=== PATIENT | female | born 1985 | race Two or more races ===

== ENCOUNTER 2023-12-25 18:07 | Emergency (ER) | payer SELFPAY ==
[~2023-12-25] VITALS: Ht 160 cm; Wt 79.5 kg
[2023-12-25] MEDS: ACETAMINOPHEN 325 MG TAB PO ONE (20:54)
[2023-12-25] MEDS: KETOROLAC TROMETH 30 MG/ML 1ML VIAL IM ONE (20:54)
[2023-12-25] MEDS: diazePAM 5 MG TAB PO ONE (20:57)
[2023-12-25 20:58] VITALS: BP 137/81; PULSE 70; RESP 17; TEMP 98.3; O2SAT 99
== END 2023-12-25 21:11 | disposition home or self-care (01) ==
LOC: ER 18:07
DX: M54.12 Radiculopathy, cervical region (principal)
CPT/HCPCS: 96372; 99283; J1885

== ENCOUNTER 2024-10-06 10:12 | Inpatient (IN) | payer OTHER ==
[~2024-10-06] VITALS: Ht 154.9 cm; Wt 82.7 kg
[2024-10-06] MEDS: SODIUM CHLORIDE 0.9% 500 ML IVB ONE (10:30)
--- NOTE | 2024-10-06 10:33 | ED.PDOC ---
History of Present Illness HPI Comments This is a 38-year-old female without any significant past medical history presented to the ER with a chief complaint of severe right subcostal pain with nausea and vomiting since yesterday prior to this visit. The patient stated that subcostal pain colicky in nature, 12/10 radiate to the epigastric region and also in the back without any aggravating and relieving factors and associated with nausea and vomiting. She went to urgent care today and they referred the patient to the ER for further evaluation and management of right subcostal pain. Chief Complaint: Flank Pain Time Seen by MD: 10:14 Allergies: Coded Allergies: NO KNOWN ALLERGIES (Unverified , 12/25/23) Information Source: Patient Mode of Arrival: Ambulatory Severity: Moderate Timing: Hours Duration: Since onset Prehospital treatment: None Past Medical History PAST MEDICAL HISTORY: Denies Surgical History: Denies all surgeries ENVIRONMENTAL HEALTH TECHNOLOGIST History: Denies all ENVIRONMENTAL HEALTH TECHNOLOGIST Hx Family History Family History: Reviewed,noncontributory to illness Social History Smoker: Non-Smoker Alcohol: Denies ETOH Use Drugs: Denies Drug Use Lives In: Home Constitutional: reports: chills; denies: diaphoresis, fatigue, fever, malaise, sweats, weakness, others EENTM: denies: blurred vision, double vision, ear bleeding, ear discharge, ear drainage, ear pain, ear ringing, eye pain, eye redness, hearing loss, mouth pain, mouth swelling, nasal discharge, nose bleeding, nose congestion, nose pain, photophobia, tearing, throat pain, throat swelling, voice changes, others Respiratory: denies: cough, hemoptysis, orthopnea, SOB at rest, shortness of breath, SOB with excertion, stridor, wheezing, others Cardiovascular: denies: chest pain, dizzy spells, diaphoresis, Dyspnea on exertion, edema, irregular heart beat, left arm pain, lightheadedness, palpitations, PND, syncope, others Gastrointestinal: reports: abdominal pain, nausea, vomiting; denies: abdomen distended, blood streaked bowels, constipated, diarrhea, dysphagia, difficulty swallowing, hematemesis, melena, poor appetite, poor fluid intake, rectal bleeding, rectal pain, others Genitourinary: denies: abnormal vagina bleeding, burning, dyspareunia, dysuria, flank pain, frequency, hematuria, incontinence, pain, , vagina disc harge, urgency, others Neurological: denies: dizziness, fainting, headache, left sided numbness, left sided weakness, numbness, paresthesia, pre-existing deficit, right sided numbness, right sided weakness, seizure, speech problems, tingling, tremors, weakness, others Musculoskeletal: denies: back pain, gout, joint pain, joint swelling, muscle pain, muscle stiffness, neck pain, others Integumetry: denies: bruises, change in color, change in hair/nails, dryness, laceration, lesions, lumps, rash, wounds, others Endocrine: denies: excessive hunger, excessive sweating, excessive thirst, excessive urination, flushing, intolerance to cold, intolerance to heat, unexplained weight gain, unexplained weight loss, others Psychiatric: denies: anxiety, bipolar disorder, depression, hopeless, panic disorder, schizophrenia, sleepless, suicidal, others Physical Exam General Appearance: Mild Distress HEENT: Normal ENT Inspection, Pharynx Normal, TMs Normal Neck: Full Range of Motion, Non-Tender, Normal, Normal Inspection Respiratory: Chest Non-Tender, Lungs Clear, No Accessory Muscle Use, No Respiratory Distress, Normal Breath Sounds Cardiovascular: No Edema, No JVD, No Murmur, No Gallop, Normal Peripheral Pulses, Regular Rate/Rhythm Breast Exam: Deferred Gastrointestinal: No Organomegaly, No Pulsatile Mass, Normal Bowel Sounds, RUQ, Tenderness Genitalia: Deferred Pelvic: Deferred Rectal: Deferred Extremities: No calf tenderness, Normal capillary refill, Normal inspection, Normal range of motion, Non-tender, No pedal edema Neurologic: NOT DONE Cerebellar Function: NOT DONE Reflexes: NOT DONE Skin: NOT DONE Peripheral Pulses: 2+ carotid (R), 2+ carotid (L), 2+ femoral (R), 2+ femoral (L), 2+ dorsalis pedis (R), 2+ dorsalis pedis (L), 2+ Radial (R), 2+ Radial (L), 2+ Brachial (R), 2+ Brachial (L) Lymphatic: NOT DONE Was a procedure done? Was a procedure done?: No Differential Dx Considerations may include: Acute cholecystitis, cholelithiasis, biliary colic, PUD, pancreatitis X-Ray, Labs, Meds, VS Vital Signs Date Time Temp Pulse Resp B/P (MAP) Pulse Ox O2 Delivery O2 Flow Rate FiO2 10/06/24 10:16 98.0 70 15 152/97 99 98.0 Lab Test 10/06/24 11:48 10/06/24 10:30 Range/Units White Blood Count 6.6 4.4-10.8 10^3/uL Red Blood Count 4.72 4.0-5.20 10^6/uL Hemoglobin 14.1 12.2-16.2 g/dL Hematocrit 40.1 36.0-46.0 % Mean Corpuscular Volume 85.0 80.0-100.0 fL Mean Corpuscular Hemoglobin 30.0 28.0-32.0 pg Mean Corpuscular Hemoglobin Concent 35.3 32.0-36.0 g/dL Red Cell Distribution Width 13.8 11.8-14.3 % Platelet Count 225 140-450 10^3/uL Mean Platelet Volume 9.3 6.9-10.8 fL Neutrophils (%) (Auto) 82.2 H 37.0-80.0 % Lymphocytes (%) (Auto) 13.0 10.0-50.0 % Monocytes (%) (Auto) 4.2 0.0-12.0 % Eosinophils (%) (Auto) 0.1 0.0-7.0 % Basophils (%) (Auto) 0.5 0.0-2.0 % Neutrophils # (Auto) 5.4 1.6-8.6 10 ^3/uL Lymphocytes # (Auto) 0.9 0.4-5.4 10 ^3/uL Monocytes # (Auto) 0.3 0-1.3 10 ^3/uL Eosinophils # (Auto) 0 0-0.8 10 ^3/uL Basophils # (Auto) 0 0-0.2 10 ^3/uL Nucleated Red Blood Cells 0.0 % Sodium Level 139 136-145 mmol/L Potassium Level 4.0 3.5-5.1 mmol/L Chloride Level 105 98-107 mmol/L Carbon Dioxide Level 26 20-31 mmol/L Anion Gap 8 5-15 Blood Urea Nitrogen 7 L 9-23 mg/dL Creatinine 0.61 0.550-1.02 mg/dL Glomerular Filtration Rate Calc 119 >90 mL/min BUN/Creatinine Ratio 11.5 10.0-20.0 Serum Glucose 97 74-106 mg/dL Calcium Level 9.1 8.7-10.4 mg/dL Magnesium Level 2.0 1.6-2.6 mg/dL Total Bilirubin 1.8 H 0.2-1.0 mg/dL Aspartate Amino Transferase (AST) 338 H 13-40 U/L Alanine Aminotransferase (ALT) 190 H 7-40 U/L Alkaline Phosphatase 71 46-116 U/L Total Protein 7.5 5.7-8.2 g/dL Albumin 4.6 3.2-4.8 g/dL Lipase 48 12-53 U/L Urine Color Yellow Yellow Urine Clarity Turbid H Clear Urine pH 7.5 5.0-9.0 Urine Specific [place] 1.027 1.001-1.035 Urine Protein Trace H Negative Urine Ketones Negative Negative Urine Blood Negative Negative /uL Urine Nitrite Negative Negative Urine Bilirubin Negative Negative Urine Urobilinogen Normal Negative mg/dL Urine Leukocyte Esterase Trace Negative /uL Urine RBC 6 0 - 4 /hpf Urine Microscopic WBC 11 H 0-5 /HPF Urine Squamous Epithelial Cells Mod <5 /hpf Urine Bacteria Few H None Seen /hpf Urine Mucus Few None Seen Urine Glucose Normal Normal mg/dL Urine Test Negative Negative X-Ray, Labs, Meds, VS Comment INDICATION: Severe right upper quadrant pain TECHNIQUE: Multiple real-time sonographic images were obtained of the right upper quadrant. COMPARISON: None FINDINGS: The liver demonstrates increased echotexture without focal mass lesions. The liver measures 18 cm. There is no intrahepatic or extrahepatic ductal dilatation. The common duct measures 6 mm. Gallstones and gallbladder sludge. The gallbladder wall measures 3 mm and is within normal limits. Sonographic luz's sign is reportedly positive. The right kidney measures 9.5 cm. The right kidney is normal in contour, size, and shape. The echogenicity is normal. There is no hydronephrosis. The pancreas is not well visualized due to overlying bowel gas. IMPRESSION: Cholelithiasis and gallbladder sludge. If clinical concern for acute cholecystitis, consider further evaluation with nuclear medicine HIDA scan. Hepatic steatosis and hepatomegaly. Images Reviewed?: Images reviewed and evaluated by me Time of 1ST Reevaluation: 13:20 Reevaluation 1ST: Improved Patient Education/Counseling: Diagnosis, Treatment Family Education/Counseling: No Family Present Comments This is a 38-year-old female with no significant past medical history presented to the ER with severe right subcostal pain nausea and vomiting for 1 day Physical examination demonstrated right subcostal dizziness with positive Luz sign Ultrasound of right upper quadrant showed cholelithiasis with sonographic positive Luz sign CBC revealed normal WBC count with left shift, H&H is stable CMP demonstrated hyperbilirubinemia with elevated AST and ALT The patient was initially treated with IV fluid, IV morphine 4 mg once, IV ondansetron 4 mg once Patient mentioned slightly improved right subcostal pain Pending nuclear medicine HIDA scan to exclude acute cholecystitis Surgical consultation may needed for further management of cholelithiasis with possible acute cholecystitis The patient needs inpatient treatment for further management of cholelithiasis possible acute cholecystitis. SEPSIS Sepsis Screen Date sepsis recognized/suspect: Oct 06, 2024 Time Sepsis recognized/suspect: 1018 Recent Procedure: No On Antibiotic Therapy: No Respiratory Rate >20: No Heart Rate >90: No Temp<36 C (96.8 F) or >38.3 C: No SBP <90 or MAP <65 mmHG: No New Acute Mental Status Change: No Is the patient on CPAP, BIPAP,: No Physician Orders Abdomen Limited (10/06/24 10:30) Nm Hida Scan (10/06/24 11:39) Chest Portable (10/06/24 11:39) Vital Signs Date Time Temp Pulse Resp B/P (MAP) Pulse Ox O2 Delivery O2 Flow Rate FiO2 10/06/24 10:16 98.0 70 15 152/97 99 98.0 Laboratory Tests Test 10/06/24 11:48 White Blood Count 6.6 10^3/uL (4.4-10.8) Departure 1 Departure Time of Disposition: 13:22 Impression: Primary Impression: Symptomatic cholelithiasis Additional Impression: Transaminitis Disposition: 30 STILL A PATIENT Admit to: Med Surg Condition: Guarded Critical Care Note Critical Care Time?: No Stability Stability form required: No LIZETTE HIDALGO RESIDENT Oct 06, 2024 10:33
[2024-10-06 11:06] LABS: Urine Protein, UAD TRACE (Negative)
--- NOTE | 2024-10-06 11:09 | DVH ---
INDICATION: Severe right upper quadrant pain TECHNIQUE: Multiple real-time sonographic images were obtained of the right upper quadrant. COMPARISON: None FINDINGS: The liver demonstrates increased echotexture without focal mass lesions. The liver measures 18 cm. There is no intrahepatic or extrahepatic ductal dilatation. The common duct measures 6 mm. Gallstones and gallbladder sludge. The gallbladder wall measures 3 mm and is within normal limits. S onographic perera's sign is reportedly positive. The right kidney measures 9.5 cm. The right kidney is normal in contour, size, and shape. The echoge nicity is normal. There is no hydronephrosis. The pancreas is not well visualized due to overlying bowel gas. IMPRESSION: Cholelithiasis and gallbladder sludge. If clinical concern for acute cholecystitis, consider further evaluation with nuclear medicine HIDA scan. Hepatic steatosis and hepatomegaly.
[2024-10-06 12:09] LABS: Hematocrit 40.1 % (36.0-46.0); Hemoglobin 14.1 g/dL (12.2-16.2); Mean Corpuscular Hemoglobin 30.0 pg (28.0-32.0); Mean Corpuscular Volume 85.0 fL (80.0-100.0); Nucleated Red Blood Cells % 0.0 %
--- NOTE | 2024-10-06 12:09 | DVH ---
INDICATION: Shortness of breath TECHNIQUE: Frontal view of the chest. COMPARISON: None FINDINGS: . The heart and mediastinal contours are grossly unremarkable. There is no evidence of pleural disea se. The lungs are clear. The bony structures of the chest are intact without fracture. IMPRESSION: 1. No evidence of acute disease.
[2024-10-06 12:25] LABS: Albumin 4.6 g/dL (3.2-4.8); Alkaline Phosphatase 71 U/L (46-116); Anion Gap 8 (5-15); BUN/Creatinine Ratio 11.5 (10.0-20.0); Calcium 9.1 mg/dL (8.7-10.4); Carbon Dioxide 26 mmol/L (20-31); Chloride 105 mmol/L (98-107); Glucose 97 mg/dL (74-106); Lipase 48 U/L (12-53); Magnesium 2.0 mg/dL (1.6-2.6); Potassium 4.0 mmol/L (3.5-5.1); Sodium 139 mmol/L (136-145); Total Protein 7.5 g/dL (5.7-8.2)
[2024-10-06 12:27] LABS: Alanine Aminotransferase 190 U/L (7-40); Bilirubin, Total 1.8 mg/dL (0.2-1.0); Blood Urea Nitrogen 7 mg/dL (9-23)
[2024-10-06] MEDS: ONDANSETRON HCL 4 MG/2 ML VIAL IV ONE (13:57)
[2024-10-06] MEDS: MORPHINE SULFATE 4 MG/ML SYR/VIAL IV ONE (14:01)
[2024-10-06 14:19] LABS: INR 1.04 (0.9-1.15); Partial Thromboplastin Time 25.3 SEC (24.5-34.5); Prothrombin Time 11.0 sec (9.3-11.8)
--- NOTE | 2024-10-06 16:49 | DVH ---
Procedure: NM NM HIDA SCAN Exam Date: 10/06/2024 02:30 PM Clinical History: Symptomatic cholelithiasis Comparison Study: None Nuclear Medicine Hepatobiliary Scan. Technique: Following the intravenous administration of 5.5 mCi of technetium 99m labeled Choletec multiple plana r abdominal planar images were obtained in anterior projection in 1 minute intervals for 60 minutes . Right lateral images were obtained at 61 minutes after injection. Findings: No small bowel visualized after 90 minutes Impression: 1. Gallbladder and common bile duct visualized. No small bowel visualized after 90 minutes.
[2024-10-06] MEDS: ACETAMINOPHEN 325 MG TAB PO ONE (17:29)
[2024-10-06] MEDS ORDERED: ONDANSETRON HCL 4 MG/2 ML VIAL IV PRN (19:15)
[2024-10-06] MEDS ORDERED: HYDROcodone-ACET 5/325MG TAB PO PRN (19:15)
[2024-10-06] MEDS ORDERED: SODIUM CHLORIDE 0.9% 1,000 ML IV ONE (19:15)
[2024-10-06] MEDS ORDERED: ACETAMINOPHEN 500 MG TAB or CAP PO PRN ×2 (19:15→19:30)
[2024-10-06] MEDS ORDERED: cefTRIAXone 1GM/50ML D5W 50 ML IV ONE (19:15)
[2024-10-06] MEDS ORDERED: MORPHINE SULFATE INJ 2 MG/ml SYRG IV PRN (19:15)
--- NOTE | 2024-10-06 19:18 | DVHHPRES ---
History of Present Illness Resident Creating Document: HUI GUSMAN RESIDENT History of Present Illness Ms Montes is a 38-year-old female who denied any past medical history, presents to the ER with a chief complaint of fever right-sided abdominal pain starting yesterday, associated with nausea and vomiting. Patient reports waking up with right sided abdominal pain which radiates to the epigastrium, colicky in nature associated with nausea and vomiting, she could not keep anything down. Denies fever but reports chills. Denies diarrhea or constipation at this time. Patient denies any other symptoms including chest pain, shortness of breath. Past medical history: Denies Past surgical history: Denies Lives with family, smoking/drinking/drug use Patient seen and examined in ER. Right upper quadrant tenderness, hypoactive bowel sounds. Smoke: No ALCOHOL: none Drugs: None Lives: with Family Review of Systems Constitutional: Yes: Chills Gastrointestinal: Nausea, Vomiting, Abdominal Pain Allergies: Coded Allergies: NO KNOWN ALLERGIES (Unverified , 12/25/23) Exam Vital Signs Vital Signs Date Time Temp Pulse Resp B/P (MAP) Pulse Ox O2 Delivery O2 Flow Rate FiO2 10/06/24 17:30 63 18 120/74 (89) 98 10/06/24 17:30 Room Air 10/06/24 10:16 98.0 98.0 Exam General Appearance: Obese female patient sitting in a chair, mild acute distress HEENT: Atraumatic, PERRLA, EOMI, Mucous membrane moist/pink Respiratory: Clear to auscultation, Normal air movement Cardiovascular: Regular rate, Normal S1, Normal S2, No murmurs, no chest wall tenderness Abdominal: Right upper quadrant tenderness, soft, hypoactive bowel sounds No hepatospenomegaly, No masses Extremities: No clubbing, No cyanosis, No edema, Normal pulses, No tenderness/swelling Skin: No rashes, No breakdown, No significant lesion Neuro: Normal gait, Normal speech, Strength at 5/5 X4 ext, Normal tone, Sensation intact, Cranial nerves 3-12 NL, Reflexes 2+ Psych/Mental Status: Mental status NL, Mood NL Labs/Xrays Labs Test 10/06/24 11:48 10/06/24 10:30 Range/Units White Blood Count 6.6 4.4-10.8 10^3/uL Red Blood Count 4.72 4.0-5.20 10^6/uL Hemoglobin 14.1 12.2-16.2 g/dL Hematocrit 40.1 36.0-46.0 % Mean Corpuscular Volume 85.0 80.0-100.0 fL Mean Corpuscular Hemoglobin 30.0 28.0-32.0 pg Mean Corpuscular Hemoglobin Concent 35.3 32.0-36.0 g/dL Red Cell Distribution Width 13.8 11.8-14.3 % Platelet Count 225 140-450 10^3/uL Mean Platelet Volume 9.3 6.9-10.8 fL Neutrophils (%) (Auto) 82.2 H 37.0-80.0 % Lymphocytes (%) (Auto) 13.0 10.0-50.0 % Monocytes (%) (Auto) 4.2 0.0-12.0 % Eosinophils (%) (Auto) 0.1 0.0-7.0 % Basophils (%) (Auto) 0.5 0.0-2.0 % Neutrophils # (Auto) 5.4 1.6-8.6 10 ^3/uL Lymphocytes # (Auto) 0.9 0.4-5.4 10 ^3/uL Monocytes # (Auto) 0.3 0-1.3 10 ^3/uL Eosinophils # (Auto) 0 0-0.8 10 ^3/uL Basophils # (Auto) 0 0-0.2 10 ^3/uL Nucleated Red Blood Cells 0.0 % Prothrombin Time 11.0 9.3-11.8 sec Prothrombin Time INR 1.04 0.9-1.15 Activated Partial Thromboplast Time 25.3 24.5-34.5 SEC Sodium Level 139 136-145 mmol/L Potassium Level 4.0 3.5-5.1 mmol/L Chloride Level 105 98-107 mmol/L Carbon Dioxide Level 26 20-31 mmol/L Anion Gap 8 5-15 Blood Urea Nitrogen 7 L 9-23 mg/dL Creatinine 0.61 0.550-1.02 mg/dL Glomerular Filtration Rate Calc 119 >90 mL/min BUN/Creatinine Ratio 11.5 10.0-20.0 Serum Glucose 97 74-106 mg/dL Calcium Level 9.1 8.7-10.4 mg/dL Magnesium Level 2.0 1.6-2.6 mg/dL Total Bilirubin 1.8 H 0.2-1.0 mg/dL Aspartate Amino Transferase (AST) 338 H 13-40 U/L Alanine Aminotransferase (ALT) 190 H 7-40 U/L Alkaline Phosphatase 71 46-116 U/L Total Protein 7.5 5.7-8.2 g/dL Albumin 4.6 3.2-4.8 g/dL Lipase 48 12-53 U/L Urine Color Yellow Yellow Urine Clarity Turbid H Clear Urine pH 7.5 5.0-9.0 Urine Specific [place] 1.027 1.001-1.035 Urine Protein Trace H Negative Urine Ketones Negative Negative Urine Blood Negative Negative /uL Urine Nitrite Negative Negative Urine Bilirubin Negative Negative Urine Urobilinogen Normal Negative mg/dL Urine Leukocyte Esterase Trace Negative /uL Urine RBC 6 0 - 4 /hpf Urine Microscopic WBC 11 H 0-5 /HPF Urine Squamous Epithelial Cells Mod <5 /hpf Urine Bacteria Few H None Seen /hpf Urine Mucus Few None Seen Urine Glucose Normal Normal mg/dL Urine Test Negative Negative SEPSIS Sepsis Screen Date sepsis recognized/suspect: Oct 06, 2024 Time Sepsis recognized/suspect: 1018 Recent Procedure: No On Antibiotic Therapy: No Respiratory Rate >20: No Heart Rate >90: No Temp<36 C (96.8 F) or >38.3 C: No SBP <90 or MAP <65 mmHG: No New Acute Mental Status Change: No Is the patient on CPAP, BIPAP,: No Physician Orders Nm Hida Scan (10/06/24 11:39) Chest Portable (10/06/24 11:39) * Surgical Consult (10/06/24 ) Admit (10/06/24 19:03) Vital Signs Date Time Temp Pulse Resp B/P (MAP) Pulse Ox O2 Delivery O2 Flow Rate FiO2 10/06/24 17:30 63 18 120/74 (89) 98 10/06/24 17:30 63 18 97 Room Air 10/06/24 14:01 74 18 127/79 Laboratory Tests Test 10/06/24 11:48 White Blood Count 6.6 10^3/uL (4.4-10.8) Medications Medications Dose Ordered Sig/Mikel Route Start Time Stop Time Status Last Admin Dose Admin Acetaminophen 650 mg ONCE ONCE PO 10/06/24 17:15 10/06/24 17:16 DC 10/06/24 17:29 650 MG Morphine Sulfate 4 mg ONCE ONCE IV 10/06/24 10:30 10/06/24 10:32 DC 10/06/24 14:01 4 MG Ondansetron HCl 4 mg ONCE ONCE IV 10/06/24 10:30 10/06/24 10:32 DC 10/06/24 13:57 4 MG Sodium Chloride 500 ml @ 500 mls/hr Q1H ONCE IVB 10/06/24 10:30 10/06/24 11:29 DC 10/06/24 10:30 500 MLS/HR Assessment/Plan Assessment/Plan Acute abdominal pain likely secondary to acute symptomatic cholelithiasis Ruled out acute cholecystitis Intractable nausea and vomiting Transaminitis secondary to hepatic steatosis Right upper quadrant ultrasound showed cholelithiasis and gallbladder sludge. If clinical concern for acute cholecystitis, consider further evaluation with nuclear medicine HIDA scan. Hepatic steatosis and hepatomegaly HIDA scan Surgical consultation IV morphine and [place] for pain management IV Zofran q.6 PRN IV ceftriaxone and metronidazole starting 10/06 Pantoprazole 40 mg IV daily Lovenox 40 mg daily Diet NPO Plan discussed with the patient all question has been answered Goal of care discussed more than 20 minutes, full code status Case discussed with Dr. Whitehead Plan discussed with: Patient My Orders Orders - HUI GUSMAN Procedure Category Date Status Time Admit ADMIT 10/06/24 Verified 19:03 HUI GUSMAN Oct 06, 2024 19:18
[2024-10-06] MEDS ORDERED: PANTOPRAZOLE 40 MG/10 ML VIAL INJ IV ONE (19:30)
[2024-10-06] MEDS: SODIUM CHLORIDE 0.9% 1,000 ML IV ONE (21:22)
[2024-10-06] MEDS: PANTOPRAZOLE 40 MG/10 ML VIAL INJ IV ONE (21:27)
[2024-10-06] MEDS: cefTRIAXone 1GM/50ML D5W 50 ML IV ONE (22:51)
[2024-10-07] MEDS: ONDANSETRON HCL 4 MG/2 ML VIAL IV PRN (06:05)
[2024-10-07] MEDS: MORPHINE SULFATE INJ 2 MG/ml SYRG IV PRN (06:06)
[2024-10-07 07:46] LABS: Albumin 4.4 g/dL (3.2-4.8); Alkaline Phosphatase 72 U/L (46-116); Anion Gap 10 (5-15); BUN/Creatinine Ratio 11.8 (10.0-20.0); Calcium 8.9 mg/dL (8.7-10.4); Carbon Dioxide 25 mmol/L (20-31); Chloride 105 mmol/L (98-107); Glucose 91 mg/dL (74-106); Potassium 4.0 mmol/L (3.5-5.1); Sodium 140 mmol/L (136-145); Total Protein 6.9 g/dL (5.7-8.2)
[2024-10-07 07:54] LABS: Alanine Aminotransferase 216 U/L (7-40); Bilirubin, Total 1.3 mg/dL (0.2-1.0); Blood Urea Nitrogen 8 mg/dL (9-23)
[2024-10-07 07:55] LABS: Hematocrit 38.6 % (36.0-46.0); Hemoglobin 13.3 g/dL (12.2-16.2); Mean Corpuscular Hemoglobin 30.1 pg (28.0-32.0); Mean Corpuscular Volume 86.9 fL (80.0-100.0); Nucleated Red Blood Cells % 0.1 %
[2024-10-07 09:00] VITALS: BP 119/78; PULSE 67; RESP 19; TEMP 98.6; O2SAT 98
[2024-10-07] MEDS ORDERED: cefTRIAXone 1GM/50ML D5W 50 ML IV SCH (09:00)
[2024-10-07] MEDS: ENOXAPARIN SOD 40 MG/0.4 ML SYRINGE SC SCH (09:50)
[2024-10-07] MEDS: PANTOPRAZOLE 40 MG/10 ML VIAL INJ IV SCH (09:50)
[2024-10-07] MEDS: cefTRIAXone 1GM/50ML D5W 50 ML IV SCH (09:51)
[2024-10-07] MEDS ORDERED: ENOXAPARIN SOD 40 MG/0.4 ML SYRINGE SC SCH (10:00)
[2024-10-07] MEDS ORDERED: PANTOPRAZOLE 40 MG/10 ML VIAL INJ IV SCH (10:00)
[2024-10-07 12:43] VITALS: BP 108/73; PULSE 69; RESP 15; TEMP 98.1; O2SAT 99
--- NOTE | 2024-10-07 16:10 | DVHINCON2 ---
Date of service: Oct 07, 2024 Family History: Diabetes mellitus G8 MOTHER Allergies: Coded Allergies: NO KNOWN ALLERGIES (Unverified , 12/25/23) Current Medications Current Medications Medications (Trade) Dose Ordered Sig/Mikel Route PRN Reason Start Time Stop Time Status Last Admin Ondansetron HCl (Zofran) 4 mg Q6HPRN PRN IV NAUSEA / VOMITING 10/06/24 19:15 10/06/24 20:07 DC Ceftriaxone Sodium 50 ml @ 100 mls/hr DAILY@09 IV 10/07/24 09:00 10/06/24 20:07 DC Metronidazole 100 ml @ 100 mls/hr Q8HR IV 10/06/24 22:00 10/06/24 20:07 DC Acetaminophen (Tylenol Tablet Or Capsule) 500 mg Q4HPRN PRN PO MILD PAIN (1-3 PAIN SCALE) 10/06/24 19:15 10/06/24 20:07 DC Acetaminophen/ Hydrocodone Bitart ([place] 5/325MG Tab) 1 tab Q4HPRN PRN PO MODERATE PAIN (4-6 PAIN SCALE) 10/06/24 19:15 10/06/24 20:07 DC Morphine Sulfate 1 mg Q4HPRN PRN IV SEVERE PAIN (7-10 PAIN SCALE) 10/06/24 19:15 10/06/24 20:07 DC Enoxaparin Sodium (Lovenox) 40 mg DAILY SC 10/07/24 10:00 10/06/24 20:07 DC Pantoprazole Sodium (Protonix) 40 mg DAILY IV 10/07/24 10:00 10/06/24 20:07 DC Ondansetron HCl (Zofran) 4 mg Q6HPRN PRN IV NAUSEA / VOMITING 10/06/24 19:30 10/07/24 06:05 Morphine Sulfate 1 mg Q4HPRN PRN IV SEVERE PAIN (7-10 PAIN SCALE) 10/06/24 19:30 10/07/24 12:00 Enoxaparin Sodium (Lovenox) 40 mg DAILY SC 10/07/24 10:00 10/07/24 09:50 Pantoprazole Sodium (Protonix) 40 mg DAILY IV 10/07/24 10:00 10/07/24 09:50 Ceftriaxone Sodium 50 ml @ 100 mls/hr DAILY@09 IV 10/07/24 09:00 10/07/24 09:51 Metronidazole 100 ml @ 100 mls/hr Q8HR IV 10/07/24 06:00 10/07/24 13:42 Acetaminophen (Tylenol Tablet Or Capsule) 500 mg Q4HPRN PRN PO MILD PAIN (1-3 PAIN SCALE) 10/06/24 19:30 Acetaminophen/ Hydrocodone Bitart ([place] 5/325MG Tab) 1 tab Q4HPRN PRN PO MODERATE PAIN (4-6 PAIN SCALE) 10/06/24 19:30 Vital Signs Vital Signs Date Time Temp Pulse Resp B/P (MAP) Pulse Ox O2 Delivery O2 Flow Rate FiO2 10/07/24 12:43 98.1 69 15 108/73 (85) 99 98.1 10/06/24 17:30 Room Air Labs/Diagnostic Data Labs Test 10/07/24 04:04 10/06/24 11:48 10/06/24 10:30 Range/Units White Blood Count 6.3 4.4-10.8 10^3/uL Red Blood Count 4.44 4.0-5.20 10^6/uL Hemoglobin 13.3 12.2-16.2 g/dL Hematocrit 38.6 36.0-46.0 % Mean Corpuscular Volume 86.9 80.0-100.0 fL Mean Corpuscular Hemoglobin 30.1 28.0-32.0 pg Mean Corpuscular Hemoglobin Concent 34.6 32.0-36.0 g/dL Red Cell Distribution Width 13.8 11.8-14.3 % Platelet Count 212 140-450 10^3/uL Mean Platelet Volume 9.9 6.9-10.8 fL Neutrophils (%) (Auto) 71.1 37.0-80.0 % Lymphocytes (%) (Auto) 21.6 10.0-50.0 % Monocytes (%) (Auto) 6.3 0.0-12.0 % Eosinophils (%) (Auto) 0.5 0.0-7.0 % Basophils (%) (Auto) 0.5 0.0-2.0 % Neutrophils # (Auto) 4.4 1.6-8.6 10 ^3/uL Lymphocytes # (Auto) 1.4 0.4-5.4 10 ^3/uL Monocytes # (Auto) 0.4 0-1.3 10 ^3/uL Eosinophils # (Auto) 0 0-0.8 10 ^3/uL Basophils # (Auto) 0 0-0.2 10 ^3/uL Nucleated Red Blood Cells 0.1 % Sodium Level 140 136-145 mmol/L Potassium Level 4.0 3.5-5.1 mmol/L Chloride Level 105 98-107 mmol/L Carbon Dioxide Level 25 20-31 mmol/L Anion Gap 10 5-15 Blood Urea Nitrogen 8 L 9-23 mg/dL Creatinine 0.68 0.550-1.02 mg/dL Glomerular Filtration Rate Calc 116 >90 mL/min BUN/Creatinine Ratio 11.8 10.0-20.0 Serum Glucose 91 74-106 mg/dL Calcium Level 8.9 8.7-10.4 mg/dL Total Bilirubin 1.3 H 0.2-1.0 mg/dL Aspartate Amino Transferase (AST) 203 H 13-40 U/L Alanine Aminotransferase (ALT) 216 H 7-40 U/L Alkaline Phosphatase 72 46-116 U/L Total Protein 6.9 5.7-8.2 g/dL Albumin 4.4 3.2-4.8 g/dL Thyroid Stimulating Hormone (TSH) 0.76 0.55-4.78 uIU/mL Prothrombin Time 11.0 9.3-11.8 sec Prothrombin Time INR 1.04 0.9-1.15 Activated Partial Thromboplast Time 25.3 24.5-34.5 SEC Magnesium Level 2.0 1.6-2.6 mg/dL Lipase 48 12-53 U/L Urine Color Yellow Yellow Urine Clarity Turbid H Clear Urine pH 7.5 5.0-9.0 Urine Specific [place] 1.027 1.001-1.035 Urine Protein Trace H Negative Urine Ketones Negative Negative Urine Blood Negative Negative /uL Urine Nitrite Negative Negative Urine Bilirubin Negative Negative Urine Urobilinogen Normal Negative mg/dL Urine Leukocyte Esterase Trace Negative /uL Urine RBC 6 0 - 4 /hpf Urine Microscopic WBC 11 H 0-5 /HPF Urine Squamous Epithelial Cells Mod <5 /hpf Urine Bacteria Few H None Seen /hpf Urine Mucus Few None Seen Urine Glucose Normal Normal mg/dL Urine Test Negative Negative Assessment [id number] C/O RUQ PAIN AFEBRILE VSS ABD SOFT TENDER RUQ LFT ELEVATED HIDA SCAN NO ACTIVITY INTO SMALL INTESTINE R/O CBD STON MRCP CONSIDER GB SURGERY BASED ON ONGOING EVAL Plan discussed with: Patient BEULAH HERRON MD Oct 07, 2024 16:10
--- NOTE | 2024-10-07 16:44 | DVHINCON2 ---
DATE OF CONSULTATION: 10/07/2024 HISTORY OF PRESENT ILLNESS: The patient is 38 years old, coming in with right upper quadrant pain. It started yesterday and has some nausea and vomiting. No hematemesis, melena. No bleeding per rectum. PAST MEDICAL HISTORY: No diabetes or hypertension. PAST SURGICAL HISTORY: No significant surgical history. PHYSICAL EXAMINATION: VITAL SIGNS: Afebrile, stable signs. HEENT: No evidence of pallor, cyanosis, or jaundice. NECK: Supple and nontender with no thyromegaly or lymphadenopathy. CHEST AND LUNGS: Clear. HEART: Within normal limits. ABDOMEN: Soft. She is tender in the right upper quadrant with minimal rebound. EXTREMITIES: Unremarkable. NEUROLOGICAL: Intact. CLINICAL IMPRESSION: Ultrasound showed evidence of cholelithiasis, rule out acute cholecystitis. Liver enzymes are elevated and the HIDA scan that was done shows gallbladder activity, but no flow into the intestine, so there is a possibility of a CBD stone. PLAN: The plan would be to consider an MRCP to rule out a CBD stone that could then require an ERCP as indicated and call that surgery can be considered based upon ongoing evaluation and indication. MD FRANCINE Newsome/FAHAD TID: [id number] RECEIPT: [id number] cc: Valencia Owens
[2024-10-07 17:00] VITALS: BP 111/62; PULSE 68; RESP 16; TEMP 99.1; O2SAT 98
--- NOTE | 2024-10-07 17:53 | DVHPNRES ---
Progress Note Date Seen: Oct 07, 2024 Resident Creating Document: DAPHNE NASH RESIDENT Medical Necessity Reason Pt with a Central, PICC or Fol: No Subjective Review of Systems Ms Montes is a 38-year-old female who denied any past medical history, presents to the ER with a chief complaint of fever right-sided abdominal pain starting yesterday, associated with nausea and vomiting. Patient reports waking up with right sided abdominal pain which radiates to the epigastrium, colicky in nature associated with nausea and vomiting, she could not keep anything down. Denies fever but reports chills. Denies diarrhea or constipation at this time. Patient denies any other symptoms including chest pain, shortness of breath. 10/07/2024 Patient seen at [facility]. Patient alert x3, in mild distress, she complains of 6/10 right upper quadrant pain, epigastric pain, which is waiting to radiating to the back. Patient states that she has a bowel movement last night, denies any diarrhea, headaches, dizziness, vomiting, nausea, shortness of breath, chest pain. Patient had 3 episodes of vomiting which was yellow in color before coming to the hospital. Ultrasound shows cholelithiasis, gallbladder sludge with no acute cholecystitis. HIDA scan was negative. Surgery was consulted and recommended to rule out CBD stone, MRCP, consider GB surgery based on undergoes ongoing evaluation. Objective vital signs Vital Sign Date Time Temp Pulse Resp B/P (MAP) Pulse Ox O2 Delivery O2 Flow Rate FiO2 10/07/24 17:26 68 16 111/62 10/07/24 12:43 98.1 99 98.1 10/06/24 17:30 Room Air Total Intake and Output 10/06/24 10/06/24 10/07/24 15:00 23:00 07:00 Intake Total 100 ml 50 ml Balance 100 ml 50 ml medications Current Medications Medications Dose Ordered Sig/Mikel Route Start Time Stop Time Status Last Admin Dose Admin Ondansetron HCl 4 mg Q6HPRN PRN IV 10/06/24 19:30 10/07/24 06:05 4 MG Morphine Sulfate 1 mg Q4HPRN PRN IV 10/06/24 19:30 10/07/24 17:26 1 MG Enoxaparin Sodium 40 mg DAILY SC 10/07/24 10:00 10/07/24 09:50 40 MG Pantoprazole Sodium 40 mg DAILY IV 10/07/24 10:00 10/07/24 09:50 40 MG Ceftriaxone Sodium 50 ml @ 100 mls/hr DAILY@09 IV 10/07/24 09:00 10/07/24 09:51 100 MLS/HR Metronidazole 100 ml @ 100 mls/hr Q8HR IV 10/07/24 06:00 10/07/24 13:42 100 MLS/HR Acetaminophen 500 mg Q4HPRN PRN PO 10/06/24 19:30 Acetaminophen/ Hydrocodone Bitart 1 tab Q4HPRN PRN PO 10/06/24 19:30 Examination General: Patient alert and oriented in person, place and time. Patient following commands. HEENT: Normocephalic, atraumatic, moist mucous membranes Respiratory/pulmonary: Clear lungs bilaterally, vesicular murmurs present in almost all lung alaniz, no associated crackles or wheezes. Cardiovascular: Normal heart sounds S1 and S2 with no associated murmurs Abdomen: Right upper quadrant tenderness, epigastric tenderness, radiating to the back, no masses Luz's sign positive Extremities: There is no peripheral edema present at the lower extremities. Peripheral Pulses: 3+ Radial (R). 3+ Radial (L). 3+ Dorsalis pedis (R). 3+ Dorsalis pedis(L) Skin: No rashes or pruritus, there is no sacral edema present at this time. Neurological: Intact cranial nerves with no focal neurologic deficits laboratory and microbiology Laboratory Tests 10/07/24 04:04 Test 10/07/24 04:04 Range/Units Serum Glucose 91 74-106 mg/dL Problem List/Assessment/Plan Problem List/Assessment/Plan #Acute abdominal pain likely secondary to acute symptomatic cholelithiasis #Ruled out acute cholecystitis #Intractable nausea and vomiting #Transaminitis secondary to hepatic steatosis -Right upper quadrant ultrasound showed cholelithiasis and gallbladder sludge. If clinical concern for acute cholecystitis, consider further evaluation with nuclear medicine HIDA scan. -Hepatic steatosis and hepatomegaly -HIDA scan negative -IV morphine and Reynolds for pain management - iV Zofran q.6 PRN -IV ceftriaxone and metronidazole starting 10/06 - surgery consulted, recommended to rule out CBD stone, MRCP, consider GB surgery based on undergoes ongoing evaluation. Pantoprazole 40 mg IV daily Lovenox 40 mg daily Diet NPO Plan discussed with the patient all question has been answered Goal of care discussed more than 20 minutes, full code status Case discussed with Dr. Whitehead Plan discussed with: Patient DAPHNE NASH RESIDENT Oct 07, 2024 17:53
[2024-10-07 20:00] VITALS: PULSE 78; RESP 18; O2SAT 96
[2024-10-07 21:00] VITALS: BP 118/68; PULSE 80; RESP 17; TEMP 98.2; O2SAT 98
[2024-10-07] MEDS: HYDROcodone-ACET 5/325MG TAB PO PRN (21:13)
[2024-10-08] VITALS (7 sets, daily range): BP systolic 93–129; BP diastolic 60–89; PULSE 72–82; RESP 17–21; TEMP 97.9–98.8; O2SAT 95–98
[2024-10-08 06:40] LABS: Hematocrit 38.4 % (36.0-46.0); Hemoglobin 13.7 g/dL (12.2-16.2); Mean Corpuscular Hemoglobin 30.2 pg (28.0-32.0); Mean Corpuscular Volume 84.8 fL (80.0-100.0); Nucleated Red Blood Cells % 0.0 %
[2024-10-08 06:47] LABS: Anion Gap 12 (5-15); Carbon Dioxide 22 mmol/L (20-31); Chloride 107 mmol/L (98-107); Sodium 141 mmol/L (136-145)
[2024-10-08 06:53] LABS: BUN/Creatinine Ratio 14.5 (10.0-20.0)
[2024-10-08 06:57] LABS: Blood Urea Nitrogen 8 mg/dL (9-23); Calcium 8.7 mg/dL (8.7-10.4); Glucose 67 mg/dL (74-106); Potassium 3.2 mmol/L (3.5-5.1)
[2024-10-08] MEDS: POTASSIUM EFFERVESENT TAB 25 MEQ PO ONE (09:23)
--- NOTE | 2024-10-08 09:31 | DVH ---
CLINICAL INFORMATION: Possible common bile duct stone. TECHNIQUE: Multisequence multiplanar MRI images of the abdomen were obtained without IV contrast. Monica rojas T2-weighted MRCP images were obtained. 3D MRCP images were created. COMPARISON: Ultrasound dated 10/06/2024. Correlation also made to nuclear medicine hepatobiliary sca n dated 10/06/2024. FINDINGS: Gallbladder is distended with gallbladder sludge and small gallstones. There appears to be gallbladder wall thickening pericholecystic fluid. Common bile duct measures up to 1.2 cm in diameter , mildly dilated. Questionable tiny filling defect in the common bile duct on MRCP seen on 1 image on ly (series 7, image 16). No evidence of common bile duct stricture. The liver, spleen, pancreas, adre nal glands, and kidneys appear grossly unremarkable on limited, noncontrast enhanced MRI exam. IMPRESSION: 1. Cholelithiasis with gallbladder wall thickening and pericholecystic fluid. Acute cholecystitis ca n not be excluded, although no evidence for acute cholecystitis on recent nuclear medicine hepatobili josefina scan. Correlate with clinical findings. 2. Common bile duct is mildly dilated. Questionable tiny filling defect in the distal common bile du ct on MRCP. Possible tiny gallstone.
--- NOTE | 2024-10-08 13:27 | DVHPNRES ---
Progress Note Date Seen: Oct 08, 2024 Resident Creating Document: DAPHNE NASH RESIDENT Medical Necessity Reason Pt with a Central, PICC or Fol: No Subjective Review of Systems Ms Montes is a 38-year-old female who denied any past medical history, presents to the ER with a chief complaint of fever right-sided abdominal pain starting yesterday, associated with nausea and vomiting. Patient reports waking up with right sided abdominal pain which radiates to the epigastrium, colicky in nature associated with nausea and vomiting, she could not keep anything down. Denies fever but reports chills. Denies diarrhea or constipation at this time. Patient denies any other symptoms including chest pain, shortness of breath. 10/07/2024 Patient seen at holding. Patient alert x3, in mild distress, she complains of 6/10 right upper quadrant pain, epigastric pain, which is waiting to radiating to the back. Patient states that she has a bowel movement last night, denies any diarrhea, headaches, dizziness, vomiting, nausea, shortness of breath, chest pain. Patient had 3 episodes of vomiting which was yellow in color before coming to the hospital. Ultrasound shows cholelithiasis, gallbladder sludge with no acute cholecystitis. HIDA scan was negative. Surgery was consulted and recommended to rule out CBD stone, MRCP, consider GB surgery based on undergoes ongoing evaluation. 10/08/24 Patient seen at bedside. Patient alert x3, in moderate distress, she complains of 8/10 pain in the right upper quadrant, epigastric pain which was radiating to the back. Patient has had a bowel movement yesterday, , denies any diarrhea, vomiting, nausea, shortness of breath. Patient had hypokalemia and potassium has been replaced. MRCP shows Cholelithiasis with gallbladder wall thickening and pericholecystic fluid. Acute cholecystitis can not be excluded, although no evidence for acute cholecystitis on recent nuclear medicine hepatobiliary scan. Correlate with clinical findings. Common bile duct is mildly dilated. Questionable tiny filling defect in the distal common bile duct on MRCP. Possible tiny gallstone. Surgery on board. Objective vital signs Vital Sign Date Time Temp Pulse Resp B/P (MAP) Pulse Ox O2 Delivery O2 Flow Rate FiO2 10/08/24 08:00 96 Room Air* 0 21 10/08/24 05:15 69 18 105/68 10/08/24 05:00 98.5 98.5 Total Intake and Output 10/07/24 10/07/24 10/08/24 15:00 23:00 07:00 Intake Total 250 ml Balance 250 ml medications Current Medications Medications Dose Ordered Sig/Mikel Route Start Time Stop Time Status Last Admin Dose Admin Ondansetron HCl 4 mg Q6HPRN PRN IV 10/06/24 19:30 10/07/24 06:05 4 MG Morphine Sulfate 1 mg Q4HPRN PRN IV 10/06/24 19:30 10/08/24 04:45 1 MG Enoxaparin Sodium 40 mg DAILY SC 10/07/24 10:00 10/08/24 09:24 40 MG Pantoprazole Sodium 40 mg DAILY IV 10/07/24 10:00 10/08/24 09:23 40 MG Ceftriaxone Sodium 50 ml @ 100 mls/hr DAILY@09 IV 10/07/24 09:00 10/08/24 09:23 100 MLS/HR Metronidazole 100 ml @ 100 mls/hr Q8HR IV 10/07/24 06:00 10/08/24 04:50 100 MLS/HR Acetaminophen 500 mg Q4HPRN PRN PO 10/06/24 19:30 Acetaminophen/ Hydrocodone Bitart 1 tab Q4HPRN PRN PO 10/06/24 19:30 10/08/24 11:56 1 TAB Examination General: Patient alert and oriented in person, place and time. Patient following commands. HEENT: Normocephalic, atraumatic, moist mucous membranes Respiratory/pulmonary: Clear lungs bilaterally, vesicular murmurs present in almost all lung alaniz, no associated crackles or wheezes. Cardiovascular: Normal heart sounds S1 and S2 with no associated murmurs Abdomen: Right upper quadrant tenderness, epigastric tenderness, radiating to the back, no masses Luz's sign positive Extremities: There is no peripheral edema present at the lower extremities. Peripheral Pulses: 3+ Radial (R). 3+ Radial (L). 3+ Dorsalis pedis (R). 3+ Dorsalis pedis(L) Skin: No rashes or pruritus, there is no sacral edema present at this time. Neurological: Intact cranial nerves with no focal neurologic deficits laboratory and microbiology Laboratory Tests 10/08/24 05:09 Test 10/08/24 05:09 Range/Units Serum Glucose 67 L 74-106 mg/dL Labs and/or images reviewed: Labs reviewed by me, Image(s) reviewed by me Problem List/Assessment/Plan Problem List/Assessment/Plan #Acute abdominal pain likely secondary to acute symptomatic cholelithiasis #Ruled out acute cholecystitis #Intractable nausea and vomiting #Transaminitis secondary to hepatic steatosis -Right upper quadrant ultrasound showed cholelithiasis and gallbladder sludge. If clinical concern for acute cholecystitis, consider further evaluation with nuclear medicine HIDA scan. -Hepatic steatosis and hepatomegaly -HIDA scan negative -IV morphine and Arnold for pain management - iV Zofran q.6 PRN -IV ceftriaxone and metronidazole starting 10/06 - surgery consulted, recommended to rule out CBD stone, MRCP, consider GB surgery based on undergoes ongoing evaluation. - MRCP shows Cholelithiasis with gallbladder wall thickening and pericholecystic fluid. Acute cholecystitis can not be excluded, although no evidence for acute cholecystitis on recent nuclear medicine hepatobiliary scan. Correlate with clinical findings. Common bile duct is mildly dilated. Questionable tiny filling defect in the distal common bile duct on MRCP. Possible tiny gallstone. # hypokalemia - replaced potassium Pantoprazole 40 mg IV daily Lovenox 40 mg daily Diet NPO Plan discussed with the patient all question has been answered Goal of care discussed more than 20 minutes, full code status Case discussed with Dr. Whitehead Plan discussed with: Patient, Other (RN) My Orders My Orders Orders - DAPHNE NASH Procedure Category Date Status Time Hepatic Panel LAB 10/08/24 Logged 12:58 DAPHNE NASH Oct 08, 2024 13:27
[2024-10-08 15:31] LABS: Alanine Aminotransferase 144.0 U/L (7-40); Albumin 4.2 g/dL (3.2-4.8); Alkaline Phosphatase 71.0 U/L (46-116); Bilirubin, Direct 0.8 mg/dL (<0.3); Bilirubin, Total 1.5 mg/dL (0.2-1.0); Total Protein 6.9 g/dL (5.7-8.2)
--- NOTE | 2024-10-08 20:11 | DVHPN2 ---
Progress Note Date Seen: Oct 08, 2024 Medical Necessity Reason Pt with a Central, PICC or Fol: No Objective vital signs Vital Sign Date Time Temp Pulse Resp B/P (MAP) Pulse Ox O2 Delivery O2 Flow Rate FiO2 10/08/24 17:00 98.0 72 18 109/70 (83) 97 98.0 10/08/24 08:00 Room Air* 0 21 Total Intake and Output 10/07/24 10/07/24 10/08/24 15:00 23:00 07:00 Intake Total 250 ml Balance 250 ml medications Current Medications Medications Dose Ordered Sig/Mikel Route Start Time Stop Time Status Last Admin Dose Admin Ondansetron HCl 4 mg Q6HPRN PRN IV 10/06/24 19:30 10/07/24 06:05 4 MG Morphine Sulfate 1 mg Q4HPRN PRN IV 10/06/24 19:30 10/08/24 04:45 1 MG Enoxaparin Sodium 40 mg DAILY SC 10/07/24 10:00 10/08/24 09:24 40 MG Pantoprazole Sodium 40 mg DAILY IV 10/07/24 10:00 10/08/24 09:23 40 MG Ceftriaxone Sodium 50 ml @ 100 mls/hr DAILY@09 IV 10/07/24 09:00 10/08/24 09:23 100 MLS/HR Metronidazole 100 ml @ 100 mls/hr Q8HR IV 10/07/24 06:00 10/08/24 14:23 100 MLS/HR Acetaminophen 500 mg Q4HPRN PRN PO 10/06/24 19:30 Acetaminophen/ Hydrocodone Bitart 1 tab Q4HPRN PRN PO 10/06/24 19:30 10/08/24 17:28 1 TAB laboratory and microbiology Laboratory Tests 10/08/24 05:09 Test 10/08/24 05:09 Range/Units Serum Glucose 67 L 74-106 mg/dL Problem List/Assessment/Plan Problem List/Assessment/Plan AFEBRILE VSS ABD SOFT LESS TENDER LFT TRENDING DOWN MRCP CBD STONE TRANSFER TO HIGHER LEVEL OF CARE FOR POSSIBLE ERCP Plan discussed with: BEULAH Conn MD Oct 08, 2024 20:10
[2024-10-09 01:00] VITALS: BP 110/63; PULSE 76; RESP 17; TEMP 98; O2SAT 98
[2024-10-09 05:00] VITALS: BP 107/66; PULSE 71; RESP 17; TEMP 98; O2SAT 95
[2024-10-09 07:33] LABS: Hematocrit 38.7 % (36.0-46.0); Hemoglobin 13.7 g/dL (12.2-16.2); Mean Corpuscular Hemoglobin 30.3 pg (28.0-32.0); Mean Corpuscular Volume 85.5 fL (80.0-100.0); Nucleated Red Blood Cells % 0.0 %
[2024-10-09 07:48] LABS: Alkaline Phosphatase 72 U/L (46-116); Anion Gap 15 (5-15); BUN/Creatinine Ratio 12.0 (10.0-20.0); Potassium 3.6 mmol/L (3.5-5.1); Sodium 139 mmol/L (136-145); Total Protein 6.9 g/dL (5.7-8.2)
[2024-10-09 07:49] LABS: Albumin 4.2 g/dL (3.2-4.8)
[2024-10-09 07:52] LABS: Alanine Aminotransferase 118 U/L (7-40); Bilirubin, Total 2.9 mg/dL (0.2-1.0); Blood Urea Nitrogen 6 mg/dL (9-23); Calcium 8.6 mg/dL (8.7-10.4); Carbon Dioxide 17 mmol/L (20-31); Chloride 107 mmol/L (98-107); Glucose 61 mg/dL (74-106)
[2024-10-09 08:00] VITALS: RESP 18; O2SAT 96
[2024-10-09 09:00] VITALS: BP 117/72; PULSE 80; RESP 19; TEMP 97.6; O2SAT 98
[2024-10-09] MEDS: POLYETHYLENE GLYCOL 17 GM PWDR PO ONE (10:00)
--- NOTE | 2024-10-09 11:50 | DVHPN2 ---
Progress Note Date Seen: Oct 09, 2024 Medical Necessity Reason Pt with a Central, PICC or Fol: No Objective vital signs Vital Sign Date Time Temp Pulse Resp B/P (MAP) Pulse Ox O2 Delivery O2 Flow Rate FiO2 10/09/24 09:00 97.6 80 19 117/72 (87) 98 97.6 10/08/24 20:00 Room Air* 0 21 Total Intake and Output 10/08/24 10/08/24 10/09/24 15:00 23:00 07:00 Intake Total 50 ml 100 ml 0 ml Balance 50 ml 100 ml 0 ml medications Current Medications Medications Dose Ordered Sig/Mikel Route Start Time Stop Time Status Last Admin Dose Admin Ondansetron HCl 4 mg Q6HPRN PRN IV 10/06/24 19:30 10/07/24 06:05 4 MG Morphine Sulfate 1 mg Q4HPRN PRN IV 10/06/24 19:30 10/08/24 04:45 1 MG Enoxaparin Sodium 40 mg DAILY SC 10/07/24 10:00 10/09/24 08:48 40 MG Pantoprazole Sodium 40 mg DAILY IV 10/07/24 10:00 10/09/24 08:48 40 MG Ceftriaxone Sodium 50 ml @ 100 mls/hr DAILY@09 IV 10/07/24 09:00 10/09/24 08:48 100 MLS/HR Metronidazole 100 ml @ 100 mls/hr Q8HR IV 10/07/24 06:00 10/09/24 05:40 100 MLS/HR Acetaminophen 500 mg Q4HPRN PRN PO 10/06/24 19:30 Acetaminophen/ Hydrocodone Bitart 1 tab Q4HPRN PRN PO 10/06/24 19:30 10/09/24 07:42 1 TAB Docusate Sodium 100 mg BID PO 10/09/24 10:00 laboratory and microbiology Laboratory Tests 10/09/24 06:32 Test 10/09/24 06:32 Range/Units Serum Glucose 61 L 74-106 mg/dL Problem List/Assessment/Plan Problem List/Assessment/Plan AFEBRILE VSS ABD SOFT LESS TENDER LFT TRENDING DOWN MRCP CBD STONE TRANSFER TO HIGHER LEVEL OF CARE FOR POSSIBLE ERCP PENDING Plan discussed with: Other My Orders My Orders Orders - BEULAH HERRON MD Procedure Category Date Status Time * Director Of [employer] Strategy CONS 10/08/24 Transmitted Consult Dietary Evaluation Review Comments: 1) If patient remains NPO > 7 days, consider EN/TPN to meet at least 75% of estimated daily needs 2) Advance to low-fat diet when medically feasible 3) Refer to outpatient RD for weight management 4) Follow-up with gastroenterology 5) Continue to monitor I&O, labs, and skin integrity Expected Outcomes/Goals: 1) patient to receive nutrition support within 7 days of NPO status 2) labs to improve 3) diet to advance 4) gradual wt loss 5) f/u in 3-5 days BEULAH HERRON MD Oct 09, 2024 11:50
[2024-10-09 13:00] VITALS: BP 122/77; PULSE 70; RESP 20; TEMP 98; O2SAT 96
[2024-10-09] MEDS: DOCUSATE SOD 100 MG CAP PO SCH (13:55)
[2024-10-09] MEDS: MORPHINE SULFATE INJ 2 MG/ml SYRG IV ONE (14:45)
[2024-10-09] MEDS ORDERED: LEVO750T40 PO (15:59)
[2024-10-09] MEDS ORDERED: MET500T PO (15:59)
[2024-10-09 16:32] VITALS: BP 128/81; PULSE 78; RESP 19; TEMP 98.1; O2SAT 98
--- NOTE | 2024-10-09 17:27 | DVHDSRES ---
Discharge Summary Date of Admission Resident Creating Document: MIKHAIL WEIR RESIDENT Oct 06, 2024 at 19:03 Date of Discharge: Oct 09, 2024 Admitting Diagnosis #Possible Acute cholangitis Labs/Diagnostic Data: Laboratory Results Test 10/09/24 06:32 10/08/24 05:09 10/07/24 04:04 10/06/24 11:48 White Blood Count 4.2 10^3/uL (4.4-10.8) Red Blood Count 4.53 10^6/uL (4.0-5.20) Hemoglobin 13.7 g/dL (12.2-16.2) Hematocrit 38.7 % (36.0-46.0) Mean Corpuscular Volume 85.5 fL (80.0-100.0) Mean Corpuscular Hemoglobin 30.3 pg (28.0-32.0) Mean Corpuscular Hemoglobin Concent 35.4 g/dL (32.0-36.0) Red Cell Distribution Width 13.4 % (11.8-14.3) Platelet Count 218 10^3/uL (140-450) Mean Platelet Volume 9.3 fL (6.9-10.8) Neutrophils (%) (Auto) 72.8 % (37.0-80.0) Lymphocytes (%) (Auto) 17.7 % (10.0-50.0) Monocytes (%) (Auto) 7.6 % (0.0-12.0) Eosinophils (%) (Auto) 1.1 % (0.0-7.0) Basophils (%) (Auto) 0.8 % (0.0-2.0) Neutrophils # (Auto) 3.0 10 ^3/uL (1.6-8.6) Lymphocytes # (Auto) 0.7 10 ^3/uL (0.4-5.4) Monocytes # (Auto) 0.3 10 ^3/uL (0-1.3) Eosinophils # (Auto) 0 10 ^3/uL (0-0.8) Basophils # (Auto) 0 10 ^3/uL (0-0.2) Nucleated Red Blood Cells 0.0 % Sodium Level 139 mmol/L (136-145) Potassium Level 3.6 mmol/L (3.5-5.1) Chloride Level 107 mmol/L (98-107) Carbon Dioxide Level 17 mmol/L (20-31) Anion Gap 15 (5-15) Blood Urea Nitrogen 6 mg/dL (9-23) Creatinine 0.50 mg/dL (0.550-1.02) Glomerular Filtration Rate Calc 125 mL/min (>90) BUN/Creatinine Ratio 12.0 (10.0-20.0) Serum Glucose 61 mg/dL (74-106) Calcium Level 8.6 mg/dL (8.7-10.4) Total Bilirubin 2.9 mg/dL (0.2-1.0) Aspartate Amino Transferase (AST) 79 U/L (13-40) Alanine Aminotransferase (ALT) 118 U/L (7-40) Alkaline Phosphatase 72 U/L (46-116) Total Protein 6.9 g/dL (5.7-8.2) Albumin 4.2 g/dL (3.2-4.8) Direct Bilirubin 0.8 mg/dL (<0.3) Thyroid Stimulating Hormone (TSH) 0.76 uIU/mL (0.55-4.78) Prothrombin Time 11.0 sec (9.3-11.8) Prothrombin Time INR 1.04 (0.9-1.15) Activated Partial Thromboplast Time 25.3 SEC (24.5-34.5) Magnesium Level 2.0 mg/dL (1.6-2.6) Lipase 48 U/L (12-53) Test 10/06/24 10:30 Urine Color Yellow (Yellow) Urine Clarity Turbid (Clear) Urine pH 7.5 (5.0-9.0) Urine Specific [place] 1.027 (1.001-1.035) Urine Protein Trace (Negative) Urine Ketones Negative (Negative) Urine Blood Negative /uL (Negative) Urine Nitrite Negative (Negative) Urine Bilirubin Negative (Negative) Urine Urobilinogen Normal mg/dL (Negative) Urine Leukocyte Esterase Trace /uL (Negative) Urine RBC 6 /hpf (0 - 4) Urine Microscopic WBC 11 /HPF (0-5) Urine Squamous Epithelial Cells Mod /hpf (<5) Urine Bacteria Few /hpf (None Seen) Urine Mucus Few (None Seen) Urine Glucose Normal mg/dL (Normal) Urine Test Negative (Negative) Other Laboratory Tests 10/09/24 06:32 Brief Hx & Hospital Course: Ms Montes is a 38-year-old female who denied any past medical history, presents to the ER with a chief complaint of fever right-sided abdominal pain starting yesterday, associated with nausea and vomiting. Patient reports waking up with right sided abdominal pain which radiates to the epigastrium, colicky in nature associated with nausea and vomiting, she could not keep anything down. Denies fever but reports chills. Denies diarrhea or constipation at this time. Patient denies any other symptoms including chest pain, shortness of breath. Brief history of hospitalization: Patient had intractable nausea and vomiting due to possible acute cholangitis, likely choledocholithiasis. We ruled out acute cystitis. Right upper quadrant ultrasound showed cholelithiasis and gallbladder sludge,hepatic steatosis and hepatomegaly. It suggested HIDA scan for clinical concern of acute cholecystitis. We did a HIDA scan which came back negative. for patient's pain and vomiting we gave him IV morphine and [place] and Zofran . We began the patient on IV ceftriaxone and metronidazole as well. Surgery was consulted and recommended to rule out CBD stone and an MRCP was suggested. MRCP showed Cholelithiasis with gallbladder wall thickening and pericholecystic fluid. Acute cholecystitis can not be excluded, although no evidence for acute cholecystitis on recent nuclear medicine hepatobiliary scan. Correlate with clinical findings. Common bile duct is mildly dilated. Questionable tiny filling defect in the distal common bile duct on MRCP. Possible tiny gallstone. Gastroenterology consult was done who suggested the patient requires an ERCP. We do not have ERCP in our facility so we have counseled the patient to get an ERCP at another hospital where its available. We are unable to transfer her due to insurance ([facility]) but tried to contact [facility] for higher level of care. Before discharge we have administered on a dose of morphine for her pain. Her discharge medication is Levaquin 750 mg and metronidazole 500 mg for 5 days. Patient has communicated understanding and agreed to go to [facility] for her ERCP. We have also counseled her that we highly recommend her to go to the emergency facility for her ERCP procedure but should she choose not to go to the Emergency at [place] or any other hospital with an ERCP facility, and she continues to have the same symptoms or any other discomfort, she can return to the hospital here at [facility]. Patient has verbalized understanding and has agreed to the discharge plan. #Possible Acute cholangitis #likely choledocholithiasis #Ruled out acute cholecystitis #Intractable nausea and vomiting #Transaminitis secondary to hepatic steatosis General: Patient alert and oriented in person, place and time. Patient following commands. HEENT: Normocephalic, atraumatic, moist mucous membranes Respiratory/pulmonary: Clear lungs bilaterally, vesicular murmurs present in almost all lung alaniz, no associated crackles or wheezes. Cardiovascular: Normal heart sounds S1 and S2 with no associated murmurs Abdomen: Right upper quadrant tenderness, epigastric tenderness, radiating to the back, no masses, Luz's sign positive Extremities: There is no peripheral edema present at the lower extremities. Peripheral Pulses: 3+ Radial (R). 3+ Radial (L). 3+ Dorsalis pedis (R). 3+ Dorsalis pedis(L) Skin: No rashes or pruritus, there is no sacral edema present at this time. Neurological: Intact cranial nerves with no focal neurologic deficits Operations or Procedures PROCEDURE(s): ABDL - ABDOMEN LIMITED INDICATION: Severe right upper quadrant pain IMPRESSION: Cholelithiasis and gallbladder sludge. If clinical concern for acute cholecystitis, consider further evaluation with nuclear medicine HIDA scan. Hepatic steatosis and hepatomegaly. PROCEDURE(s): CXRP - CHEST PORTABLE REASON: Shortness of breath IMPRESSION:No evidence of acute disease. PROCEDURE(s): GBNM - NM HIDA SCAN REASON: Symptomatic cholelithiasis Impression: Gallbladder and common bile duct visualized. No small bowel visualized after 90 minutes. PROCEDURE(s): MRCP - MRCP MRI REASON: Possible CBD Stone IMPRESSION: 1. Cholelithiasis with gallbladder wall thickening and pericholecystic fluid. Acute cholecystitis can not be excluded, although no evidence for acute cholecystitis on recent nuclear medicine hepatobiliary scan. Correlate with clinical findings. 2. Common bile duct is mildly dilated. Questionable tiny filling defect in the distal common bile duct on MRCP. Possible tiny gallstone. Condition at Discharge: Stable Final Diagnosis/Problems List #Possible Acute cholangitis #likely choledocholithiasis #Intractable nausea and vomiting #Transaminitis secondary to hepatic steatosis #Hypokalemia Discharge Disposition: Home Discharge Instruct/Medications Diet: See Comment Diet comment: Clear liquid diet Activity: No Restrictions, As Tolerated Follow Up/Referral: Follow up with primary care physician as soon as possible Follow up with higher level of care as outpatient as soon as possible for ERCP Medications: tab Levaquin 750 mg once a day for 5 days Tab metronidazole 500 mg twice a day for 5 days Scheduled Levofloxacin Hemihydrate (Levofloxacin), 750 MG PO DAILY Metronidazole (Metronidazole), 500 MG PO TID Discharge Statement: "Patient was advised to return to the ER or call 911 if any headaches, dizziness, shortness of breath, chest pain, abdominal pain, bleeding, fevers, or worsening of medical condition. Patient was counseled about treatment plan, medications, possible side effects, patientverbalized understanding. All questions were answered to the best of my ability. This discharge took greater then 30 minutes in planning, reviewing documentation, counseling the patient, and discussing with other team members." ASSESSMENT ASSESSMENT Assessment #Possible Acute cholangitis Date of Service: Oct 09, 2024 Billing Provider: ANETA HARRIS MD Common Visit Codes: 78868-NFK/OBS DISCH DAY >30min MIKHAIL WEIR Oct 09, 2024 17:27 ANETA HARRIS MD Oct 11, 2024 21:16
== END 2024-10-09 18:30 | disposition home or self-care (01) ==
LOC: ER 10:12 → OVERFLOW 19:03 → ER 19:04 → WEST WING 10-07 14:16
PROVIDERS: ADMIT Student in an Organized Health Care Education/Training Program; ATTEND Student in an Organized Health Care Education/Training Program
DX: K80.32 Calculus of bile duct with acute cholangitis without obstruction (principal); K80.70 Calculus of gallbladder and bile duct without cholecystitis without obstruction; K76.0 Fatty (change of) liver, not elsewhere classified; E87.6 Hypokalemia; K82.8 Other specified diseases of gallbladder; Z83.3 Family history of diabetes mellitus; Z79.899 Other long term (current) drug therapy
CPT/HCPCS: 36415; 71045; 74181; 76705; 78226; 80048; 80053; 80076; 81001; 81025; 83690; 83735; 84443; 85025; 85610; 85730; 86850; 86900; 86901; 96361; 96374; G0378; J2405; J2470; J3490